=== PATIENT | male | born 1950 | race Caucasian/White ===

== ENCOUNTER 2016-09-22 11:09 | Emergency (ER) | payer MEDICARE, OTHER ==
[~2016-09-22] VITALS: Ht 170.2 cm; Wt 70.3 kg
[2016-09-22 11:17] VITALS: BP 178/85
== END 2016-09-22 13:55 | disposition home or self-care (01) ==
LOC: ER 11:09
DX: S09.90XA Unspecified injury of head, initial encounter (principal); E11.9 Type 2 diabetes mellitus without complications; E78.5 Hyperlipidemia, unspecified; I73.9 Peripheral vascular disease, unspecified; I10 Essential (primary) hypertension; Z88.0 Allergy status to penicillin; V43.52XA Car driver injured in collision with other type car in traffic accident, initial encounter; Y93.89 Activity, other specified; Y99.8 Other external cause status; Y92.89 Other specified places as the place of occurrence of the external cause
CPT/HCPCS: 70450

== ENCOUNTER 2018-06-12 10:11 | Emergency (ER) | payer MEDICARE, OTHER ==
[~2018-06-12] VITALS: Ht 170.2 cm; Wt 65.8 kg
[~2018-06-12 10:11] MED LIST: ALOG25TA PO; AMLO5TAB13 PO; CLOP75TA41 PO; GABA300C10 PO; HYDR100T22 PO; KETO2CRE4 TOP; LATA0.0015 EACHEYE; LOSA-49 PO; METF-372 PO; METO-158 PO; OMEG100078 PO
[2018-06-12 10:16] VITALS: BP 175/66
[2018-06-12] MEDS ORDERED: KETOROLAC TROMETH 60MG/2ML VIAL IM ONE (10:45)
== END 2018-06-12 11:22 | disposition home or self-care (01) ==
LOC: ER 10:11
DX: M25.551 Pain in right hip (principal); E11.9 Type 2 diabetes mellitus without complications; E78.5 Hyperlipidemia, unspecified; I10 Essential (primary) hypertension; Z88.0 Allergy status to penicillin; Z79.899 Other long term (current) drug therapy
CPT/HCPCS: 73502; J1885

== ENCOUNTER 2018-06-30 20:24 | Emergency (ER) | payer MEDICARE, OTHER ==
[~2018-06-30] VITALS: Ht 165.1 cm; Wt 81.6 kg
[2018-06-30] MEDS ORDERED: diphenhdrAMINE HCL 50 MG/1 ML VL ONE (20:30)
[2018-06-30] MEDS ORDERED: methylPREDNISolone SOD SUCC 125 MG/2 ML VL ONE (20:30)
[2018-06-30] MEDS ORDERED: EPINEPHrine HCL 1 MG/1 ML AMP ONE (20:31)
[2018-06-30] MEDS ORDERED: FAMOTIDINE (10MG/ML) 2ML VL IV ONE ×2 (20:31→20:45)
[2018-06-30] MEDS ORDERED: diphenhdrAMINE HCL 50 MG/1 ML VL IV ONE (20:45)
[2018-06-30] MEDS ORDERED: methylPREDNISolone SOD SUCC 125 MG/2 ML VL IV ONE (20:45)
[2018-06-30] MEDS ORDERED: EPINEPHrine HCL 1 MG/1 ML AMP SC ONE (20:45)
[2018-06-30 23:12] VITALS: BP 136/59
== END 2018-07-01 00:26 | disposition home or self-care (01) ==
LOC: ER 20:24
DX: T78.40XA Allergy, unspecified, initial encounter (principal); T78.3XXA Angioneurotic edema, initial encounter; X58.XXXA Exposure to other specified factors, initial encounter; E78.5 Hyperlipidemia, unspecified; E11.9 Type 2 diabetes mellitus without complications; I10 Essential (primary) hypertension; Z88.0 Allergy status to penicillin; Z79.84 Long term (current) use of oral hypoglycemic drugs; Z79.899 Other long term (current) drug therapy
CPT/HCPCS: 71045; 96372; 96374; 96375; 99283; J0171; J1200; J2930; J3490